=== PATIENT | male | born 1955 | race African-American/Black ===

== ENCOUNTER → 2025-03-20 | Outpatient (CLI) | payer MEDICARE, MEDICAID, SELFPAY ==
--- NOTE | 2025-03-20 13:30 | XR_ITS ---
Examination: Retroperitoneal ultrasound, complete Technique: Multiple high resolution grayscale images of the retroperitoneum obtained, including kidneys and bladder. Exam date and time:March 20, 2025 1422 hours INDICATIONS: Right flank pain beginning 4 months ago FINDINGS: Right kidney 11.3 cm cortex 2.8 cm Left kidney 11.3 cm cortex 2.3 cm Mild bilateral renal parenchymal scar formation No bladder mass or bladder calculi Bladder prevoid volume 138 cc Significant prostatomegaly volume 60 cc no prostate nodules IMPRESSION: Mild bilateral renal parenchymal scar formation Significant prostatomegaly, no prostate nodules
== END | disposition home or self-care (01) ==
PROVIDERS: PCP Nurse Practitioner Family; Referring Provider Nurse Practitioner Family; Visit Provider Nurse Practitioner Family
DX: N28.89 Other specified disorders of kidney and ureter (principal); N40.0 Benign prostatic hyperplasia without lower urinary tract symptoms
CPT/HCPCS: 76770